=== PATIENT | female | born 1955 | race Caucasian/White ===

== ENCOUNTER 2024-09-26 13:40 | Emergency (ER) | payer MEDICARE, OTHER ==
[2024-09-26 13:52] LABS: BASOPHILS ABSOLUTE AUTO 0.01 10^3/uL (0.00-0.50); BASOPHILS PERCENT AUTO 0.4 % (0-1); EOSINOPHILS ABSOLUTE AUTO 0.01 10^3/uL (0.00-1.50); EOSINOPHILS PERCENT AUTO 0.4 % (0-6); HEMATOCRIT 41.3 % (37.0-47.0); HEMOGLOBIN 13.7 g/dL (12.0-16.0); LYMPHOCYTES ABSOLUTE AUTO 0.68 10^3/uL (0.60-5.00); LYMPHOCYTES PERCENT AUTO 25.2 % (24-44); MEAN CORPUSCULAR HEMOGLOBIN 32.2 pg (27.0-32.0); MEAN CORPUSCULAR HGB CONC 33.2 g/dL (32.0-36.0); MEAN CORPUSCULAR VOLUME 96.9 fL (83.0-97.0); MONOCYTES ABSOLUTE AUTO 0.29 10^3/uL (0.00-1.50); MONOCYTES PERCENT AUTO 10.7 % (0-10); NEUTROPHILS ABSOLUTE AUTO 1.71 x10^3/uL (1.80-8.00); NEUTROPHILS PERCENT AUTO 63.3 % (41-71); PLATELET COUNT,PLT 162 10^3/uL (150-400); RED BLOOD CELL COUNT 4.26 x10^6/uL (4.00-5.50); WHITE BLOOD CELL COUNT,WBC 2.7 10^3/uL (4.0-11.0)
[2024-09-26 14:07] LABS: ALANINE AMINOTRANSFERASE,ALT 39 U/L (12-78); ALBUMIN 3.2 g/dL (3.4-5.0); ALKALINE PHOSPHATASE 65 U/L (46-116); ASPARTATE AMNIOTRANSFERASE,AST 43 U/L (15-37); BILIRUBIN TOTAL 0.3 mg/dL (0.0-1.0); BLOOD UREA NITROGEN,BUN 17 mg/dL (7-18); CALCIUM 8.2 mg/dL (8.4-10.1); CARBON DIOXIDE,CO2 29 mmol/L (21-32); CHLORIDE,CL 98 mEq/L (98-106); ESTIMATED GFR 62 mL/min (>=60); GLUCOSE RANDOM 168 mg/dL (75-99); POTASSIUM,K 3.5 mEq/L (3.5-5.0); PROTEIN TOTAL,TP 6.4 g/dL (6.4-8.2); SODIUM,NA 134 mEq/L (136-145)
[2024-09-26 14:08] VITALS: BP 149/79; PULSE 91
[2024-09-26] MEDS: Albuterol/Ipratropium 3.0-0.5 MG/3 ML Neb Soln ONE (14:19)
[2024-09-26] MEDS: methylPREDNISolone Sodium Succinate 40 MG/1 ML SDV IM ONE (14:22)
[2024-09-26] MEDS: methylPREDNISolone Sodium Succinate 125 MG/2 ML SDV IM STA (14:24)
[2024-09-26 14:55] LABS: CORONAVIRUS COVID-19 NAA NEGATIVE (NEGATIVE); INFLUENZA A NAA POSITIVE (NEGATIVE); INFLUENZA B NAA NEGATIVE (NEGATIVE)
== END 2024-09-26 15:20 | disposition home or self-care (01) ==
LOC: CC.ED 13:40
DX: J10.1 Influenza due to other identified influenza virus with other respiratory manifestations (principal); J45.909 Unspecified asthma, uncomplicated; E03.9 Hypothyroidism, unspecified; Z88.1 Allergy status to other antibiotic agents; Z91.012 Allergy to eggs; Z88.2 Allergy status to sulfonamides; Z88.8 Allergy status to other drugs, medicaments and biological substances; Z79.890 Hormone replacement therapy; Z79.899 Other long term (current) drug therapy; Z87.891 Personal history of nicotine dependence; Z90.710 Acquired absence of both cervix and uterus
CPT/HCPCS: 0240U; 36415; 71046; 80053; 84484; 85025; 86140; 87428-QW; 93005; 96372; 99285; J2919